=== PATIENT | female | born 1995 | race Two or more races ===

== ENCOUNTER 2024-04-14 21:16 | Emergency (ER) | payer SELFPAY ==
[2024-04-14] MEDS: Dextrose 5%-Lactated Ringers 1,000 ML IV SCH (21:51)
[2024-04-14] MEDS: LORazepam 2 MG/ML SDV IVPUSH ONE (21:52)
[2024-04-14] MEDS: Metoclopramide 10 MG/2 ML SDV IVPUSH ONE (21:52)
[2024-04-14 22:13] LABS: BASOPHILS PERCENT AUTO 0.2 % (0.0-1.0); EOSINOPHILS PERCENT AUTO 0.1 % (0.0-6.0); HEMATOCRIT 35.5 % (37.0-47.0); HEMOGLOBIN 11.9 gm/dl (12.0-16.0); IMMATURE GRAN ABSOLUTE AUTO 0.03 K/mm3 (0.00-0.05); IMMATURE GRAN PERCENT AUTO 0.2 % (0.0-0.4); LYMPHOCYTES ABSOLUTE AUTO 1.8 K/mm3 (1.0-4.8); LYMPHOCYTES PERCENT AUTO 14.6 % (24.0-44.0); MEAN CORPUSCULAR HEMOGLOBIN 29.5 pg (28.0-32.0); MEAN CORPUSCULAR HGB CONC 33.5 g/dl (32.0-36.0); MEAN CORPUSCULAR VOLUME 88.1 fl (83.0-99.0); MEAN PLATELET VOLUME 9.1 fl (9.4-12.3); MONOCYTES ABSOLUTE AUTO 0.3 K/mm3 (0.0-0.8); MONOCYTES PERCENT AUTO 2.5 % (0.0-8.0); NEUTROPHILS ABSOLUTE AUTO 10.1 K/mm3 (1.8-7.7); NEUTROPHILS PERCENT AUTO 82.4 % (41.0-71.0); PLATELET COUNT,PLT 286 K/mm3 (150-400); RED BLOOD CELL COUNT 4.03 M/mm3 (4.10-5.30); WHITE BLOOD CELL COUNT,WBC 12.24 K/mm3 (3.9-11.3)
[2024-04-14 22:38] LABS: A/G RATIO 0.9 (1-2); ALBUMIN 3.3 g/dl (3.4-5.0); ANION GAP 14.1 (5-15); BILIRUBIN TOTAL 0.4 mg/dL (0.2-1.0); BUN/CREATININE RATIO 8.9 (14-18); CALCIUM 7.9 mg/dL (8.5-10.1); CREATININE 0.9 mg/dL (0.55-1.02); EST CRCL DRUG DOSING (CG) 66.04 mL/min; ETHANOL BLOOD MEDICAL 0.04 gm% (0.00); MAGNESIUM 1.7 mg/dL (1.8-2.4); POTASSIUM,K 3.1 mEq/L (3.5-5.1)
== END 2024-04-15 06:53 | disposition home or self-care (01) ==
LOC: JD.ED 21:16
DX: R11.14 Bilious vomiting (principal); T40.2X5A Adverse effect of other opioids, initial encounter; F10.10 Alcohol abuse, uncomplicated; F15.10 Other stimulant abuse, uncomplicated; E86.0 Dehydration
CPT/HCPCS: 36415; 80053; 80307; 83735; 84703; 85025; 96361; 96374; 96375; 99284; J2060; J2765; J7121